=== PATIENT | male | born 2000 | race Hispanic/Latino ===

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

== ENCOUNTER 2024-08-27 20:35 | Emergency (ER) | payer OTHER, SELFPAY ==
[2024-08-27] MEDS ORDERED: Tetracaine 0.5% PF 4 ML BOT ONE (20:58)
[2024-08-27] MEDS ORDERED: Fluorescein Opthalmic Strip ONE (20:58)
== END 2024-08-27 21:37 | disposition home or self-care (01) ==
LOC: BURERS 20:35
DX: S05.02XA Injury of conjunctiva and corneal abrasion without foreign body, left eye, initial encounter (principal); W26.8XXA Contact with other sharp object(s), not elsewhere classified, initial encounter; Y93.D9 Activity, other involving arts and handcrafts
CPT/HCPCS: 99283